=== PATIENT | female | born 1955 | race Native Hawaiian/Other Pacific Islander ===

== ENCOUNTER 2021-01-25 10:27 | Outpatient (CLI) | payer OTHER | END 2021-01-25 21:50 | disposition home or self-care (01) | LOC: US 10:27 | PROVIDERS: ATTEND Internal Medicine | DX: R22.43 Localized swelling, mass and lump, lower limb, bilateral (principal); L72.9 Follicular cyst of the skin and subcutaneous tissue, unspecified ==

== ENCOUNTER 2021-01-30 10:26 | Outpatient (CLI) | payer OTHER | END 2021-01-30 19:18 | disposition home or self-care (01) | LOC: US 10:26 | PROVIDERS: ATTEND Internal Medicine | DX: R60.0 Localized edema (principal); L72.9 Follicular cyst of the skin and subcutaneous tissue, unspecified ==